=== PATIENT | male | born 1995 | race Caucasian/White ===

== ENCOUNTER 2019-11-09 20:43 | Emergency (ER) | payer OTHER | END 2019-11-10 00:24 | disposition other institution (70) | LOC: ED 20:43 | DX: Z02.89 Encounter for other administrative examinations (principal) ==

== ENCOUNTER 2019-11-09 20:43 | Emergency (ER) | payer SELFPAY ==
[~2019-11-09] VITALS: Ht 188 cm; Wt 83.9 kg
[2019-11-09 20:49] VITALS: BP 126/7; Ht 188 cm; Wt 83.9 kg
== END 2019-11-10 00:24 | disposition other institution (70) ==
LOC: ED 20:43
DX: S00.83XA Contusion of other part of head, initial encounter (principal); S00.31XA Abrasion of nose, initial encounter; Y04.8XXA Assault by other bodily force, initial encounter; Y93.89 Activity, other specified; Y92.89 Other specified places as the place of occurrence of the external cause; Y99.8 Other external cause status
CPT/HCPCS: 90715